=== PATIENT | female | born 1990 | race Caucasian/White ===

== ENCOUNTER → 2018-04-19 | Outpatient (CLI) | payer OTHER ==
--- NOTE | 2018-04-20 11:21 | US ---
EXAMINATION TYPE: US abdomen complete DATE OF EXAM: 04/19/2018 COMPARISON: NONE CLINICAL HISTORY: Abdominal discomfort. EXAM MEASUREMENTS: Liver Length: 15.1 cm Gallbladder Wall: 0.2 cm CBD: 0.2 cm Spleen: 10.4 cm Right Kidney: 11.0 x 4.0 x 4.9 cm Left Kidney: 10.4 x 6.1 x 4.4 cm Pancreas: wnl as visualized, portion of head obscured by bowel gas Liver: homogeneous Gallbladder: wnl Evidence for sonographic Garcia's sign: no CBD: wnl Spleen: wnl Right Kidney: No hydronephrosis or masses seen Left Kidney: No hydronephrosis or masses seen, inferior pole obscured by bowel gas Upper IVC: wnl Abd Aorta: wnl The liver is homogenous. The intrahepatic portion of the IVC and proximal abdominal aorta are within normal limits. There is no evidence of cholelithiasis. Common bile duct is unremarkable. The visu alized portions of the pancreas are homogenous. The spleen is unremarkable. Kidneys are symmetric a nd free of hydronephrosis. No renal lesions are seen. IMPRESSION: No significant abnormality appreciated.
== END ==
LOC: RADUSWWP 15:32
PROVIDERS: ATTEND Family Medicine
DX: R10.9 Unspecified abdominal pain (principal)
CPT/HCPCS: 76700

== ENCOUNTER → 2019-11-07 | Outpatient (CLI) | payer MEDICAID ==
--- NOTE | 2019-11-07 13:02 | US ---
EXAMINATION TYPE: US pelvis complete transvag DATE OF EXAM: 11/07/2019 COMPARISON: NONE CLINICAL HISTORY: 28-year-old female R10.2 pelvic pain. TECHNIQUE: Transabdominal sonographic images of the pelvis were acquired. Transvaginal sonographic i mages were medically necessary to better assess the anatomy. FINDINGS: Date of LMP: 10/07/2019 EXAM MEASUREMENTS: Uterus: 9.5 x 5.4 x 4.2 cm Endometrial Stripe: 0.5 cm Right Ovary: 4.6 x 2.8 x 2.8 cm for a volume of 18.9 mL. Left Ovary: 3.7 x 2.4 x 2.3 cm for a volume of 10.7 mL. 1. Uterus: Anteverted. 2 cervical nabothian cysts measuring 7 mm. 2. Endometrium: wnl 3. Right Ovary: with 2 cysts largest= 3.2 x 1.6 x 1.6 cm 4. Left Ovary: with follicles 5. Bilateral Adnexa: wnl 6. Posterior cul-de-sac: Mild to moderate cul-de-sac free fluid with mild fluid in the right adnexa. IMPRESSION: 1. Two dominant follicles or functional cysts in the right ovary measuring up to 3.2 cm. 2. Normal follicular change in the left ovary. 3. Mild to moderate cul-de-sac free fluid and mild free fluid in the right adnexa, probably physiolog ic. Short interval follow-up if indicated.
== END | disposition home or self-care (01) ==
LOC: RADUSWWP 12:22
PROVIDERS: ATTEND Internal Medicine
DX: N83.201 Unspecified ovarian cyst, right side (principal); R10.2 Pelvic and perineal pain
CPT/HCPCS: 76830; 76856